=== PATIENT | male | born 1960 | race African-American/Black ===

== ENCOUNTER 2025-04-03 21:31 | Inpatient (IN) | payer OTHER, MEDICAID ==
[~2025-04-03] VITALS: Ht 182.9 cm; Wt 117.5 kg
[2025-04-03 22:19] VITALS: O2SAT 99
[2025-04-03 23:34] LABS: BASOPHILS % 0.5 % (0.0-2.0); EOSINOPHILS % 0.5 % (0.0-5.0); HEMATOCRIT. 43.1 % (42.0-52.0); HEMOGLOBIN. 14.5 g/dL (14.0-18.0); LYMPHOCYTES % 16.4 % (20.0-50.0); MEAN PLATELET VOLUME 8.9 fl (7.4-10.4); MONOCYTES % 8.4 % (2.0-8.0); NEUTROPHILS % 74.2 % (40.0-76.0); PLATELET 160 x1000/uL (130-400); RED BLOOD CELL COUNT 4.82 mill/uL (4.7-6.1); RED CELL DISTRIBUTION WIDTH 15.0 % (11.6-14.6)
[2025-04-03 23:47] LABS: CREATININE 1.4 mg/dL (0.6-1.3); UREA NITROGEN BLOOD 10 mg/dL (9-23)
[2025-04-03 23:48] LABS: TROPONIN I HIGH SENSITIVITY 15 ng/L (3.0-53)
[2025-04-04] MEDS: LABETALOL 5MG/ML 4ML INJ IV ONE
[2025-04-04] MEDS: HYDRALAZINE 20MG/ML VIAL IV NR (01:40)
[2025-04-04] MEDS: LABETALOL 5MG/ML 4ML INJ IV NR (02:39)
[2025-04-04] MEDS: LORAZEPAM 2MG/ML UD SYRINGE IV NR (03:41)
[2025-04-04 03:48] LABS: CLARITY URINE CLEAR (CLEAR); COLOR URINE YELLOW (YELLOW); GLUCOSE URINE NEGATIVE (NEGATIVE); KETONES URINE NEGATIVE (NEGATIVE); LEUKOCYTE ESTERASE URINE NEGATIVE (NEGATIVE); NITRITE URINE NEGATIVE (NEGATIVE); OCCULT BLOOD URINE NEGATIVE (NEGATIVE); PH URINE 6.5 (4.5-8.0); PROTEIN URINE NEGATIVE (NEGATIVE); SPECIFIC GRAVITY URINE 1.017 (1.005-1.030); UROBILINOGEN URINE 0.2 E.U./dL (0.2-1.0)
[2025-04-04 03:53] LABS: BASOPHILS % 0.5 % (0.0-2.0); EOSINOPHILS % 1.1 % (0.0-5.0); HEMATOCRIT. 42.8 % (42.0-52.0); HEMOGLOBIN. 14.2 g/dL (14.0-18.0); LYMPHOCYTES % 21.8 % (20.0-50.0); MEAN PLATELET VOLUME 9.0 fl (7.4-10.4); MONOCYTES % 8.0 % (2.0-8.0); NEUTROPHILS % 68.6 % (40.0-76.0); PLATELET 163 x1000/uL (130-400); RED BLOOD CELL COUNT 4.81 mill/uL (4.7-6.1); RED CELL DISTRIBUTION WIDTH 15.0 % (11.6-14.6)
[2025-04-04] MEDS: IOHEXOL-350 100 ML BOTTLE ONE (03:57)
[2025-04-04 04:06] LABS: *AMPHETAMINES SCREEN URINE NEGATIVE (NEGATIVE)
[2025-04-04 04:07] LABS: CREATININE 1.3 mg/dL (0.6-1.3); UREA NITROGEN BLOOD 12 mg/dL (9-23)
[2025-04-04 04:07] LABS: *BARBITURATES SCREEN URINE NEGATIVE (NEGATIVE); *BENZODIAZEPINES SCREEN URINE NEGATIVE (NEGATIVE); *COCAINE SCREEN URINE NEGATIVE (NEGATIVE); CANNABINOID URINE SCREEN NEGATIVE (NEGATIVE); ECSTASY MDMA SCREEN URINE NEGATIVE (NEGATIVE); METHADONE URINE SCREEN NEGATIVE (NEGATIVE); OPIATES URINE SCREEN NEGATIVE (NEGATIVE); PHENCYCLIDINE URINE SCREEN NEGATIVE (NEGATIVE)
[2025-04-04 04:08] LABS: ETHANOL BLOOD < 10 mg/dL (<10)
[2025-04-04 04:09] LABS: ASPARTATE AMINOTRANSFERASE 25 IU/L (<34); BILIRUBIN DIRECT 0.1 mg/dL (<=3.0); BILIRUBIN TOTAL 0.4 mg/dL (0.1-1.0); PROTEIN TOTAL 7.1 g/dL (6.0-8.3)
[2025-04-04] MEDS ORDERED: DOCUSATE SODIUM 100MG CAPSULE PO PRN (04:45)
[2025-04-04] MEDS ORDERED: IPRATROPIUM/ALBUTEROL 0.5-3(2.5)MG/3ML NEB HHN PRN (04:45)
[2025-04-04] MEDS ORDERED: ONDANSETRON HCL 4MG/2ML INJ IV PRN (04:45)
[2025-04-04] MEDS ORDERED: MAGNESIUM/ALUMINUM HYDROXIDE/SIMETHICONE 30ML UDC PO PRN (04:45)
[2025-04-04] MEDS ORDERED: ACETAMINOPHEN 325MG TABLET PO PRN ×2 (04:45)
[2025-04-04] MEDS ORDERED: GUAIFENESIN 200MG/10ML SUGAR FREE UDC PO PRN (04:45)
[2025-04-04 04:53] LABS: INR 1.0
[2025-04-04] MEDS: AMLODIPINE 10MG TABLET PO SCH (08:13)
[2025-04-04] MEDS: ASPIRIN 81MG EC TABLET PO SCH (08:13)
[2025-04-04] MEDS: ENOXAPARIN 30MG/0.3ML SYR SUBCUT SCH (08:14)
[2025-04-04] MEDS: CLONIDINE 0.1MG TABLET PO PRN (08:16)
[2025-04-04 08:56] VITALS: BP 197/109; PULSE 76; RESP 18; TEMP 36.3624
[2025-04-04 12:00] VITALS: BP_SYST 129; BP_SYST 159; BP_DIAS 75; BP_DIAS 88; PULSE 81; PULSE 84; RESP 18; TEMP 36.5; TEMP 36.6; O2SAT 97; O2SAT 98
[2025-04-04] MEDS: CLOPIDOGREL 75MG TABLET PO SCH (12:08)
[2025-04-04 16:00] VITALS: BP 150/87; PULSE 79; RESP 17; TEMP 36.8; O2SAT 95
[2025-04-04 20:00] VITALS: BP 167/100; PULSE 80; RESP 20; TEMP 36.7; O2SAT 97
[2025-04-04] MEDS ORDERED: ATORVASTATIN CALCIUM 40MG TABLET PO SCH (21:00)
[2025-04-04] MEDS: ATORVASTATIN CALCIUM 40MG TABLET PO SCH (21:10)
[2025-04-05] VITALS (7 sets, daily range): BP systolic 142–180; BP diastolic 84–102; PULSE 67–86; RESP 17–19; TEMP 36.2–36.7; O2SAT 95–98
[2025-04-05 07:58] LABS: BASOPHILS % 0.4 % (0.0-2.0); EOSINOPHILS % 2.3 % (0.0-5.0); HEMATOCRIT. 44.4 % (42.0-52.0); HEMOGLOBIN. 14.6 g/dL (14.0-18.0); LYMPHOCYTES % 29.6 % (20.0-50.0); MEAN PLATELET VOLUME 9.1 fl (7.4-10.4); MONOCYTES % 9.0 % (2.0-8.0); NEUTROPHILS % 58.7 % (40.0-76.0); PLATELET 165 x1000/uL (130-400); RED BLOOD CELL COUNT 4.97 mill/uL (4.7-6.1); RED CELL DISTRIBUTION WIDTH 15.2 % (11.6-14.6)
[2025-04-05 08:10] LABS: CREATININE 1.2 mg/dL (0.6-1.3)
[2025-04-05 08:11] LABS: TRIGLYCERIDE 87 mg/dL (0-150); UREA NITROGEN BLOOD 10 mg/dL (9-23)
[2025-04-05 08:12] LABS: LDL CHOLESTEROL 93 mg/dL (5-100)
[2025-04-05 08:14] LABS: T4 FREE 1.43 ng/dL (0.89-1.76)
[2025-04-05] MEDS: HYDRALAZINE 20MG/ML VIAL IV SCH (12:00)
[2025-04-05] MEDS ORDERED: HYDRALAZINE 20MG/ML VIAL IV PRN (14:30)
[2025-04-06] VITALS: BP 154/103; PULSE 70; RESP 21; TEMP 36.3; O2SAT 96
[2025-04-06 04:00] VITALS: BP 151/93; PULSE 79; RESP 19; TEMP 36.4; O2SAT 96
[2025-04-06 08:00] VITALS: BP 145/101; PULSE 80; RESP 18; TEMP 36.6; O2SAT 95
[2025-04-06 09:16] LABS: CREATININE 1.2 mg/dL (0.6-1.3); UREA NITROGEN BLOOD 17 mg/dL (9-23)
[2025-04-06] MEDS: HYDROCHLOROTHIAZIDE 25MG TABLET PO SCH (09:17)
[2025-04-06 09:18] LABS: BASOPHILS % 0.5 % (0.0-2.0); EOSINOPHILS % 2.5 % (0.0-5.0); HEMATOCRIT. 44.4 % (42.0-52.0); HEMOGLOBIN. 14.8 g/dL (14.0-18.0); LYMPHOCYTES % 28.1 % (20.0-50.0); MEAN PLATELET VOLUME 9.2 fl (7.4-10.4); MONOCYTES % 8.7 % (2.0-8.0); NEUTROPHILS % 60.2 % (40.0-76.0); PLATELET 165 x1000/uL (130-400); RED BLOOD CELL COUNT 4.99 mill/uL (4.7-6.1); RED CELL DISTRIBUTION WIDTH 15.2 % (11.6-14.6)
[2025-04-06 12:00] VITALS: BP 155/95; PULSE 78; RESP 17; TEMP 36.6; O2SAT 95
[2025-04-06 16:00] VITALS: BP 157/91; PULSE 84; RESP 18; TEMP 36.3; O2SAT 96
[2025-04-06 20:00] VITALS: BP 151/96; PULSE 85; RESP 20; TEMP 36.5; O2SAT 98
[2025-04-06 20:49] LABS: TRIGLYCERIDE 103.0 mg/dL (0-150)
[2025-04-06 20:50] LABS: CREATINE KINASE MB FRACTION 1.1 ng/mL (0.5-3.6); LDL CHOLESTEROL 85.0 mg/dL (5-100); TROPONIN I HIGH SENSITIVITY 11 ng/L (3.0-53)
[2025-04-06 20:55] LABS: T4 FREE 1.49 ng/dL (0.89-1.76)
[2025-04-07] VITALS: BP 153/87; PULSE 79; RESP 20; TEMP 36.6; O2SAT 95
[2025-04-07 04:00] VITALS: BP 158/89; PULSE 81; RESP 19; TEMP 36.3; O2SAT 98
[2025-04-07 06:20] LABS: CREATINE KINASE MB FRACTION 1.4 ng/mL (0.5-3.6); TROPONIN I HIGH SENSITIVITY 12 ng/L (3.0-53)
[2025-04-07 08:00] VITALS: BP 136/101; PULSE 83; RESP 16; TEMP 36.5; O2SAT 97
[2025-04-07 12:00] VITALS: BP 154/95; PULSE 83; RESP 15; TEMP 36.6; O2SAT 96
[2025-04-07 16:00] VITALS: BP 144/94; PULSE 87; RESP 16; TEMP 36.7; O2SAT 97
[2025-04-07 18:01] LABS: CREATINE KINASE MB FRACTION 1.0 ng/mL (0.5-3.6)
[2025-04-07 18:02] LABS: TROPONIN I HIGH SENSITIVITY 10 ng/L (3.0-53)
[2025-04-07 20:00] VITALS: BP 152/95; PULSE 87; RESP 22; TEMP 36.1; O2SAT 96
[2025-04-08] VITALS: BP 159/101; PULSE 84; RESP 20; TEMP 36.2; O2SAT 97
[2025-04-08 04:00] VITALS: BP 146/91; PULSE 87; RESP 20; TEMP 36.1; O2SAT 98
[2025-04-08 07:11] LABS: CREATININE 1.2 mg/dL (0.6-1.3); UREA NITROGEN BLOOD 18 mg/dL (9-23)
[2025-04-08 07:40] LABS: BASOPHILS % 0.5 % (0.0-2.0); EOSINOPHILS % 1.9 % (0.0-5.0); HEMATOCRIT. 47.5 % (42.0-52.0); HEMOGLOBIN. 15.7 g/dL (14.0-18.0); LYMPHOCYTES % 25.1 % (20.0-50.0); MEAN PLATELET VOLUME 9.6 fl (7.4-10.4); MONOCYTES % 9.7 % (2.0-8.0); NEUTROPHILS % 62.8 % (40.0-76.0); PLATELET 180 x1000/uL (130-400); RED BLOOD CELL COUNT 5.31 mill/uL (4.7-6.1); RED CELL DISTRIBUTION WIDTH 14.4 % (11.6-14.6)
[2025-04-08 08:00] VITALS: BP 153/96; PULSE 89; RESP 19; TEMP 36.2; O2SAT 97
[2025-04-08 12:00] VITALS: BP 148/101; PULSE 66; RESP 18; TEMP 36.8; O2SAT 95
[2025-04-08] MEDS ORDERED: ASPI-1406 PO (12:54)
[2025-04-08] MEDS ORDERED: HYDR25TA PO (12:54)
[2025-04-08] MEDS ORDERED: CLOP-31 PO (12:54)
[2025-04-08] MEDS ORDERED: LIP40 PO (12:54)
[2025-04-08] MEDS ORDERED: AMLO10TA80 PO (12:54)
[2025-04-08 16:00] VITALS: BP 147/92; PULSE 98; RESP 18; TEMP 37.1; O2SAT 98
[2025-04-08] MEDS ORDERED: HYDRALAZINE 10 MG in SODIUM CHLORIDE 0.9% 49.5 ML IV PRN (16:45)
[2025-04-08 20:00] VITALS: BP 144/92; PULSE 99; RESP 17; TEMP 36.6; O2SAT 98
[2025-04-09] VITALS: BP 132/80; PULSE 97; RESP 19; TEMP 36.6; O2SAT 99
[2025-04-09 04:00] VITALS: BP 146/107; PULSE 94; RESP 19; TEMP 36.6; O2SAT 100
[2025-04-09 08:00] VITALS: BP 157/95; PULSE 94; RESP 20; TEMP 36.7; O2SAT 95
[2025-04-09 12:00] VITALS: BP 138/88; PULSE 91; RESP 19; TEMP 36.6; O2SAT 97
[2025-04-09 16:00] VITALS: BP 133/88; PULSE 87; RESP 20; TEMP 36.6; O2SAT 96
[2025-04-09 20:00] VITALS: BP 148/77; PULSE 91; RESP 18; TEMP 36.7; O2SAT 96
[2025-04-10] VITALS: BP 151/91; PULSE 88; RESP 18; TEMP 37.3; O2SAT 97
[2025-04-10 04:00] VITALS: BP 128/81; PULSE 78; RESP 18; TEMP 36.7; O2SAT 96
[2025-04-10 08:00] VITALS: BP 150/93; PULSE 72; RESP 18; TEMP 36.4; O2SAT 97
[2025-04-10 12:00] VITALS: BP 138/90; PULSE 84; RESP 18; TEMP 36.7; O2SAT 100
[2025-04-10 16:00] VITALS: BP 145/91; PULSE 86; RESP 18; TEMP 35.6; O2SAT 97
[2025-04-10 20:00] VITALS: BP 120/74; PULSE 98; RESP 18; RESP 20; TEMP 36.5; TEMP 36.6; O2SAT 98
[2025-04-11] VITALS: BP 150/89; PULSE 66; RESP 18; TEMP 36.5; O2SAT 96
[2025-04-11 04:00] VITALS: BP 152/89; PULSE 89; RESP 18; TEMP 36.7; O2SAT 95; O2SAT 96
[2025-04-11 08:00] VITALS: BP 140/84; PULSE 82; RESP 19; TEMP 36.8; O2SAT 99
[2025-04-11 12:00] VITALS: BP 141/85; PULSE 88; RESP 19; TEMP 36.9; O2SAT 99
[2025-04-11 16:00] VITALS: BP 140/92; PULSE 80; RESP 19; TEMP 36.6; O2SAT 99
[2025-04-11 20:00] VITALS: BP 144/94; PULSE 89; RESP 19; TEMP 36.7; O2SAT 98
[2025-04-12] VITALS: BP 152/88; PULSE 79; RESP 18; TEMP 36.5; O2SAT 99
[2025-04-12 04:00] VITALS: BP 146/87; PULSE 77; RESP 18; TEMP 36.5; O2SAT 99
[2025-04-12 08:00] VITALS: BP 146/84; PULSE 78; RESP 18; TEMP 36.4; O2SAT 99
[2025-04-12 12:00] VITALS: BP 134/78; PULSE 76; RESP 18; TEMP 36.3; O2SAT 98
[2025-04-12 16:00] VITALS: BP 128/74; PULSE 76; RESP 18; TEMP 36.4; O2SAT 98
[2025-04-12 20:00] VITALS: BP 143/88; PULSE 82; RESP 18; TEMP 36.8; O2SAT 96
[2025-04-13 04:00] VITALS: BP 138/72; PULSE 75; RESP 16; TEMP 36.6; O2SAT 96
[2025-04-13 08:00] VITALS: BP 136/92; PULSE 76; RESP 16; TEMP 36.2; O2SAT 96
[2025-04-13 12:00] VITALS: BP 148/96; PULSE 79; RESP 16; TEMP 36.5; O2SAT 97
[2025-04-13 15:45] VITALS: BP 150/84; PULSE 81; RESP 16; TEMP 98
== END 2025-04-13 16:40 | DRG 45 ==
LOC: ER 21:46 → EDBEDREQ 04-04 03:37 → EDBEDREQTM 04-04 03:37 → 6WST 04-04 04:44 → ENRESERV 04-04 07:03 → 6WST 04-04 16:34 → 8EST 04-08 16:33
PROVIDERS: ADMIT Hospitalist; ATTEND Hospitalist
DX: I63.9 Cerebral infarction, unspecified (principal); M62.82 Rhabdomyolysis; I16.1 Hypertensive emergency; G81.91 Hemiplegia, unspecified affecting right dominant side; N17.9 Acute kidney failure, unspecified; Z79.02 Long term (current) use of antithrombotics/antiplatelets; E66.812 Obesity, class 2; Z68.35 Body mass index [BMI] 35.0-35.9, adult; I11.9 Hypertensive heart disease without heart failure; E88.810 Metabolic syndrome; I83.90 Asymptomatic varicose veins of unspecified lower extremity; I87.2 Venous insufficiency (chronic) (peripheral); E78.5 Hyperlipidemia, unspecified; N43.3 Hydrocele, unspecified; Z79.82 Long term (current) use of aspirin; Z79.899 Other long term (current) drug therapy; Z82.49 Family history of ischemic heart disease and other diseases of the circulatory system; Z83.3 Family history of diabetes mellitus; Z86.73 Personal history of transient ischemic attack (TIA), and cerebral infarction without residual deficits
CPT/HCPCS: 36415; 70496; 70498; 70551; 71045; 73560; 80048; 80061; 80076; 80305; 80320; 81003; 82550; 82553; 83036; 83735; 83880; 84439; 84443; 84484; 85025; 85379; 93005; 93306; 93970; 96374; 96375; 97110; 97112; 97116; 97162; 97166; 97530; 97535; 99285; J0360; J1650; J2060; J3490; Q9967; G0480